=== PATIENT | male | born 1975 | race Caucasian/White ===

== ENCOUNTER 2020-12-11 20:11 | Emergency (ER) | payer OTHER | END 2020-12-11 20:56 | disposition home or self-care (01) | LOC: FER 20:11 | DX: T21.12XA Burn of first degree of abdominal wall, initial encounter (principal); T31.0 Burns involving less than 10% of body surface; I10 Essential (primary) hypertension; Z23 Encounter for immunization; X12.XXXA Contact with other hot fluids, initial encounter; Y92.009 Unspecified place in unspecified non-institutional (private) residence as the place of occurrence of the external cause | CPT/HCPCS: 90471; 90715 ==